=== PATIENT | male | born 1990 | race Caucasian/White ===

== ENCOUNTER 2017-06-16 05:13 | Day surgery (SDC) | payer BC ==
[~2017-06-16] VITALS: Ht 177.8 cm; Wt 76.3 kg
[~2017-06-16 05:13] MED LIST: CRUT1EAC7 MC; CYCL10TA9 PO; NAPR-243 PO; OXYC-197 PO; RANI150T15 PO
[2017-06-16] MEDS ORDERED: NS IV 1000 ML 1,000 ML IV ONE (05:27)
[2017-06-16] MEDS ORDERED: KETOROLAC 30 MG/ML VIAL IVP STA (05:27)
--- NOTE | 2017-06-16 05:27 | ED Abdominal Pain ---
General Stated Complaint: RT SIDE PAIN,DE LA CRUZ Source of Information: Patient Exam Limitations: No Limitations (CHAVEZ RIVERA) History of Present Illness Time Seen By Provider: 05:21 Initial Comments Patient presents to ER with his family by private conveyance with a chief complaint of abdominal pain started abruptly about 7:30 last night. It is accompanied by nausea with no vomiting and a headache. He states that he was doing well and had no sick contacts but started having right-sided abdominal pain up her and lower quadrants. It does not radiate anywhere. He gets a little nauseated when he gets up and moves around but is okay when he lies still. He has no fevers but he's felt chills. No rashes nor diarrhea or constipation. He says he's never had any surgeries on his belly and has had no other medical problems. He takes ranitidine for acid reflux chronically. He chews tobacco but does not smoke and has not drank in over 2-1/2 weeks. He denies any history of illicit drug use or infectious disease such as HIV or hepatitis. (CHAVEZ RIVERA) Allergies and Home Medications Allergies Coded Allergies: No Known Drug Allergies (Unverified , 02/01/13) Home Medications Docusate Sodium 100 Mg Capsule, 100 MG PO BID, #60 Prescribed by: GABRIELA HILL on 06/16/17 0900 Hydrocodone/Acetaminophen 1 Each Tablet, 1 TAB PO Q4H PRN, #30 Ref 0 Prescribed by: GABRIELA HILL on 06/16/17 0900 Ranitidine HCl 150 Mg Tablet, 150 MG PO DAILY, (Reported) Review of Systems Constitutional: see HPI, chills, No diaphoresis, No fever, malaise EENTM: No Eye Pain, No Ear Pain, No Nose Congestion, No Nose Pain Respiratory: Denies Cough, Shortness of Air, Denies Wheezing Cardiovascular: Denies Chest Pain, Denies Edema, Denies Palpitations, Denies Syncope Gastrointestinal: See HPI, Denies Abdomen Distended, Abdominal Pain (right sided), Denies Constipated, Denies Diarrhea, Nausea, Denies Vomiting Genitourinary: Denies Burning, Denies Discharge, Denies Pain Musculoskeletal: No back pain, No joint pain Skin: No pruritus, No rash Psychiatric/Neurological: Headache, Denies Numbness (CHAVEZ RIVERA) Past Jswdzpg-Yarpcl-Jzlysc Hx Patient Social History Alcohol Use: Occasionally Uses (last used 2-1/2 weeks ago) Recreational Drug Use: No Smoking Status: Never a Smoker Type Used: Smokeless Tobacco Recent Foreign Travel: No Contact w/Someone Who Travel: No (CHAVEZ RIVERA) Immunizations Up To Date Tetanus Booster (TDap): Less than 5yrs (CHAVEZ RIVERA) Surgeries HX Surgeries: No (CHAVEZ RIVERA) Respiratory Hx Respiratory Disorders: No (CHAVEZ RIVERA) Cardiovascular Hx Cardiac Disorders: No (HOLOSYSTOLIC MURMER) (CHAVEZ RIVERA) Neurological Hx Neurological Disorders: No (CHAVEZ RIVERA) Reproductive System Hx Reproductive Disorders: No Sexually Transmitted Disease: No HIV/AIDS: No (CHAVEZ RIVERA) Genitourinary Hx Genitourinary Disorders: No (CHAVEZ RIVERA) Gastrointestinal Hx Gastrointestinal Disorders: No Gastrointestinal Disorders: Gastroesophageal Reflux (CHAVEZ RIVERA) Musculoskeletal Hx Musculoskeletal Disorders: No (CHAVEZ RIVERA) Endocrine Hx Endocrine Disorders: No (CHAVEZ RIVERA) HEENT HX ENT Disorders: No (CHAVEZ RIVERA) Cancer Hx Cancer: No (CHAVEZ RIVERA) Psychosocial Hx Psychiatric Problems: No (CHAVEZ RIVERA) Integumentary HX Skin/Integumentary Disorder: No (CHAVEZ RIVERA) Blood Transfusions Hx Blood Disorders: No Adverse Reaction to a Blood Tr: No (CHAVEZ RIVERA) Family Medical History Family Medial History: Hypertension 19 FATHER (CHAVEZ RIVERA) Family Medial History: Hypertension 19 FATHER (SANDRA SHARMA DO) Physical Exam Vital Signs VS - Last 72 Hours, by Label 06/16/17 05:19 Temp 99.4 Pulse 88 Resp 20 B/P (MAP) 127/75 Pulse Ox 96 O2 Delivery Room Air (SANDRA SHARMA DO) Vital Signs Capillary Refill : (CHAVEZ RIVERA) General Appearance: WD/WN, mild distress HEENT: PERRL/EOMI, pharynx normal Respiratory: lungs clear, normal breath sounds Cardiovascular: normal peripheral pulses, regular rate, rhythm, no edema Peripheral Pulses: 3+ Radial Pulses (R), 3+ Radial Pulses (L) Gastrointestinal: normal bowel sounds, no organomegaly, no pulsatile mass, No distended, guarding, tenderness (right upper quadrant and right lower quadrant. He has Kohli's positive sign as well as rebound tenderness in the McBurney's point) Extremities: normal inspection, normal capillary refill Back: normal inspection, no CVA tenderness Neurologic/Psychiatric: alert, normal mood/affect, oriented x 3 Skin: normal color, warm/dry (CHAVEZ RIVERA) Focused Exam Lactic Acid Level Laboratory Tests Test 06/16/17 05:29 Lactic Acid Level 1.20 MMOL/L (0.50-2.00) (SANDRA SHARMA DO) Progress/Results/Core Measures Results/Orders Lab Results Laboratory Tests Test 06/16/17 05:29 06/16/17 05:55 Range/Units White Blood Count 13.5 H 4.3-11.0 10^3/uL Red Blood Count 4.86 4.35-5.85 10^6/uL Hemoglobin 14.2 13.3-17.7 G/DL Hematocrit 41 40-54 % Mean Corpuscular Volume 84 80-99 FL Mean Corpuscular Hemoglobin 29 25-34 PG Mean Corpuscular Hemoglobin Concent 35 32-36 G/DL Red Cell Distribution Width 11.8 10.0-14.5 % Platelet Count 183 130-400 10^3/uL Mean Platelet Volume 9.3 7.4-10.4 FL Neutrophils (%) (Auto) 84 H 42-75 % Lymphocytes (%) (Auto) 7 L 12-44 % Monocytes (%) (Auto) 8 0-12 % Eosinophils (%) (Auto) 1 0-10 % Basophils (%) (Auto) 0 0-10 % Neutrophils # (Auto) 11.4 H 1.8-7.8 X 10^3 Lymphocytes # (Auto) 1.0 1.0-4.0 X 10^3 Monocytes # (Auto) 1.1 H 0.0-1.0 X 10^3 Eosinophils # (Auto) 0.1 0.0-0.3 10^3/uL Basophils # (Auto) 0.0 0.0-0.1 10^3/uL Neutrophils % (Manual) 85 % Lymphocytes % (Manual) 9 % Monocytes % (Manual) 5 % Basophils % (Manual) 1 % Band Neutrophils % Blood Morphology Comment NORMAL Sodium Level 135 135-145 MMOL/L Potassium Level 3.8 3.6-5.0 MMOL/L Chloride Level 105 98-107 MMOL/L Carbon Dioxide Level 19 L 21-32 MMOL/L Anion Gap 11 5-14 MMOL/L Blood Urea Nitrogen 14 7-18 MG/DL Creatinine 1.08 0.60-1.30 MG/DL Estimat Glomerular Filtration Rate > 60 BUN/Creatinine Ratio 13 Glucose Level 116 H 70-105 MG/DL Lactic Acid Level 1.20 0.50-2.00 MMOL/L Calcium Level 9.0 8.5-10.1 MG/DL Magnesium Level 1.9 1.8-2.4 MG/DL Total Bilirubin 0.9 0.1-1.0 MG/DL Aspartate Amino Transf (AST/SGOT) 18 5-34 U/L Alanine Aminotransferase (ALT/SGPT) 20 0-55 U/L Alkaline Phosphatase 67 40-136 U/L Total Protein 6.6 6.4-8.2 GM/DL Albumin 4.0 3.2-4.5 GM/DL Lipase 15 8-78 U/L Urine Color YELLOW Urine Clarity CLEAR Urine pH 7 5-9 Urine Specific [place] 1.010 L 1.016-1.022 Urine Protein NEGATIVE NEGATIVE Urine Glucose (UA) NEGATIVE NEGATIVE Urine Ketones NEGATIVE NEGATIVE Urine Nitrite NEGATIVE NEGATIVE Urine Bilirubin NEGATIVE NEGATIVE Urine Urobilinogen NORMAL NORMAL MG/DL Urine Leukocyte Esterase NEGATIVE NEGATIVE Urine RBC (Auto) NEGATIVE NEGATIVE Urine RBC NONE /HPF Urine WBC NONE /HPF Urine Squamous Epithelial Cells RARE /HPF Urine Crystals NONE /LPF Urine Bacteria NEGATIVE /HPF Urine Casts NONE /LPF Urine Mucus NEGATIVE /LPF Urine Culture Indicated NO (SANDRA SHARMA DO) Medications Given in ED Current Medications Medications Dose Ordered Sig/Tanika Route Start Time Stop Time Status Last Admin Dose Admin Ondansetron HCl 4 mg ONCE ONCE IVP 06/16/17 05:30 06/16/17 05:31 DC 06/16/17 05:34 4 MG Sodium Chloride 1,000 ml @ 0 mls/hr Q0M ONCE IV 06/16/17 05:27 06/16/17 05:31 DC 06/16/17 05:34 999 MLS/HR (BRINA SHARMAA Acosta DO) Vital Signs/I&O Vital Sign - Last 12Hours 7/19/17 05:19 Temp 99.4 Pulse 88 Resp 20 B/P (MAP) 127/75 Pulse Ox 96 O2 Delivery Room Air (RANSANDRA Acosta PENG) Progress Note #1: Time: 05:33 Progress Note Right-sided abdominal pain could be associated with kidney stone versus gallbladder versus appendicitis. It would be prudent to get a CT scan now as well as blood work looking for signs of infection. We'll go ahead and start loading him up with a liter fluids. We'll treat his pain with Toradol since he indicates that the most of his pain and discomfort is from his headache right now and give him some Zofran. Progress Note #2: Time: 06:08 Progress Note Discussed the case with Ran. White count 13.5 and normal lactate pending urines and CT scan shows no evidence of ureter stones or gallbladder inflammation or stones. I don't see the appendix very well. Pending radiology over read. (CHAVEZ RIVERA) Progress Note : Progress Note 0600--ASSUMED CARE FROM DR. RIVERA, CT SCAN RESULTS PENDING PT STATES HIS PAIN AND NAUSEA HAVE EASED AT THIS TIME (SANDRA SHARMA DO) Diagnostic Imaging Diagonstic Imaging: CT Plain Films/CT/US/NM/MRI: abdomen (pelvis without) Comments CT scan shows no evidence of ureter stones or gallbladder inflammation or stones. I don't see the appendix very well. Pending radiology over read. Reviewed: Reviewed Night [facility] Study, Reviewed by Me (CHAVEZ RIVERA) Comments CT ABDOMEN/PELVIS--+ APPENDICITIS WITHOUT PERFORATION, PER [facility] RADIOLOGIST VIA PHONE @ 0620 Reviewed: Reviewed by Me, Discussed w/Radiologist (SANDRA SHARMA DO) Transfer of Care Transfer of Care Time: 06:08 Care transferred to: Ran (CHAVEZ RIVERA) Departure Communication Progress Notes 0623--SPOKE WITH DR. HILL, WILL BE IN TO SEE PT. HE ADVISES TO CONTACT COMPLIANCE COUNSEL, HE WILL BE TAKING DIRECTLY TO SURGERY. 0655--DR. HILL HERE, CARE TURNED OVER TO HIM (SANDRA SHARMA DO) Impression Impression: Primary Impression: Appendicitis Qualified Codes: K35.80 - Unspecified acute appendicitis Disposition: ADMITTED INPATIENT (TO SURGERY) Condition: Improved Decision to Admit Reason: Admit from ER (General) (TO SURGERY) Decision to Admit/Date: Jun 16, 2017 Time/Decision to Admit Time: 06:20 (SANDRA SHARMA DO) Departure-Patient Inst. Referrals: NO,LOCAL PHYSICIAN (PCP/Family) Primary Care Physician Scripts Hydrocodone/Acetaminophen (Hydrocodon -Acetaminophen 5-325) 1 Each Tablet 1 TAB PO Q4H Y, #30 TAB 0 Refills Prov: GABRIELA HILL DO 06/16/17 Docusate Sodium (Colace) 100 Mg Capsule 100 MG PO BID, #60 CAP Prov: GABRIELA HILL DO 06/16/17 CHAVEZ RIVERA Jun 16, 2017 05:27 SANDRA SHARMA DO Jun 16, 2017 06:32
[2017-06-16] MEDS ORDERED: ONDANSETRON 4 MG/2 ML (SDV) Z0FRAN IVP ONE (05:30)
[2017-06-16 05:38] LABS: BASOPHILS % (AUTO) 0 % (0-10); EOSINOPHILS # (AUTO) 0.1 10^3/uL (0.0-0.3); EOSINOPHILS % (AUTO) 1 % (0-10); LYMPHOCYTES % (AUTO) 7 % (12-44); MEAN CORPUSCULAR HEMOGLOBIN 29 PG (25-34); MEAN CORPUSCULAR HGB CONC 35 G/DL (32-36); MEAN CORPUSCULAR VOLUME 84 FL (80-99); MEAN PLATELET VOLUME 9.3 FL (7.4-10.4); MONOCYTES # (AUTO) 1.1 X 10^3 (0.0-1.0); MONOCYTES % (AUTO) 8 % (0-12); NEUTROPHILS # (AUTO) 11.4 X 10^3 (1.8-7.8); NEUTROPHILS % (AUTO) 84 % (42-75); PLATELET COUNT 183 10^3/uL (130-400); RED BLOOD COUNT 4.86 10^6/uL (4.35-5.85); RED CELL DISTRIBUTION WIDTH 11.8 % (10.0-14.5); WHITE BLOOD COUNT 13.5 10^3/uL (4.3-11.0)
[2017-06-16] MEDS ORDERED: Ranitidine (05:53)
[2017-06-16 06:00] LABS: ALANINE AMINOTRANSFERASE 20 U/L (0-55); ANION GAP 11 MMOL/L (5-14); ASPARTATE AMINO TRANSFERASE 18 U/L (5-34); BILIRUBIN,TOTAL 0.9 MG/DL (0.1-1.0); BLOOD UREA NITROGEN 14 MG/DL (7-18); BUN/CREATININE RATIO 13; CARBON DIOXIDE 19 MMOL/L (21-32); CHLORIDE 105 MMOL/L (98-107); CREATININE SERUM 1.08 MG/DL (0.60-1.30); GFR ESTIMATED > 60; GLUCOSE 116 MG/DL (70-105); LIPASE 15 U/L (8-78); MAGNESIUM 1.9 MG/DL (1.8-2.4); POTASSIUM 3.8 MMOL/L (3.6-5.0); SODIUM 135 MMOL/L (135-145); TOTAL PROTEIN 6.6 GM/DL (6.4-8.2)
[2017-06-16 06:03] LABS: BILIRUBIN,URINE NEGATIVE (NEGATIVE); KETONES,URINE NEGATIVE (NEGATIVE); LEUKOCYTE ESTERASE ,URINE NEGATIVE (NEGATIVE); NITRITE,URINE NEGATIVE (NEGATIVE); PH,URINE 7 (5-9); PROTEIN,URINE NEGATIVE (NEGATIVE); UROBILINOGEN,URINE NORMAL (NORMAL)
[2017-06-16 06:05] LABS: BASOPHILS % (MANUAL) 1 %; LYMPHOCYTES % (MANUAL) 9 %; NEUTROPHILS % (MANUAL) 85 %
[2017-06-16 06:17] LABS: SQUAMOUS EPITHELIAL CELL,UR RARE /HPF
[2017-06-16] MEDS ORDERED: DEXAMETHASONE PF 10 MG/ML (DECADRON) VIAL ONE (06:45)
[2017-06-16] MEDS ORDERED: LIDOCAINE 2% 20 ML (XYLOCAINE) VIAL ONE (06:45)
[2017-06-16] MEDS ORDERED: ONDANSETRON 4 MG/2 ML (SDV) Z0FRAN ONE (06:45)
[2017-06-16] MEDS ORDERED: proPOfol 200 MG/20 ML (DIPRIVAN) VIAL IV ONE (06:45)
[2017-06-16] MEDS ORDERED: fentaNYL INJECTION 100 MCG/2 ML AMP ONE ×2 (06:45→08:14)
[2017-06-16] MEDS ORDERED: MIDAZOLAM 2 MG/2 ML (VERSED) VIAL ONE (06:45)
[2017-06-16] MEDS ORDERED: LACTATED RINGERS 1,000 ML IV ONE (06:45)
[2017-06-16] MEDS ORDERED: SEVOFLURANE (ULTANE) 15 ML INHAL SOLN ONE (06:45)
--- NOTE | 2017-06-16 06:54 | Diagnostic Imaging Report ---
PROCEDURE: CT abdomen and pelvis without contrast. TECHNIQUE: Multiple contiguous axial images were obtained through the abdomen and pelvis without the use of intravenous contrast. INDICATION: Pain. I have no priors. FINDINGS: Appendix arises off the posterior medial aspect of the lower cecum and is oriented superolaterally. It is mildly dilated measuring up to 9 mm transverse and there is some mild edema and infiltration of the periappendiceal fat. There is no free air, extraluminal gas or loculated fluid collection. There is no appendicolith. There is no bowel obstruction. The liver, gallbladder, spleen, adrenals and pancreas are unremarkable. The unobstructed kidneys appeared normal. The aorta is nonaneurysmal. This patient has a minute amount of pelvic free fluid. IMPRESSION: Findings most consistent with early changes of acute appendicitis without obstruction, free air or abscess. Minute pelvic free fluid separable from the presumed inflamed appendix. Study otherwise unremarkable. Agree with preliminary. Dictated by: Dictated on workstation # [id number]
[2017-06-16] MEDS ORDERED: LIDOCAINE 1% INJ 20 ML (XYLOCAINE) VIAL ONE (07:02)
[2017-06-16] MEDS ORDERED: BUPIVACAINE 0.5% 30 ML (SENSORCAINE) VIAL ONE (07:02)
[2017-06-16] MEDS ORDERED: ceFAZolin INJECTION 1,000 MG in NS (IVPB) 50 ML IV ONE (07:15)
[2017-06-16] MEDS ORDERED: metroNIDAZOLE 500MG/100ML IVPB IV ONE (07:15)
[2017-06-16] MEDS ORDERED: NS (IVPB) 50 ML ONE (07:17)
[2017-06-16] MEDS ORDERED: ceFAZolin 1,000 MG (ANCEF) VIAL ONE (07:17)
[2017-06-16] MEDS ORDERED: metroNIDAZOLE 500MG/100ML IVPB 100 ML ONE (07:18)
--- NOTE | 2017-06-16 07:19 | History & Physical-Surgical ---
History of Present Illness History of Present Illness Reason for visit/HPI CC abdominal pain. Patient is seen and evaluated in emergency dept. Patient with about 12 hours of abdominal pain. He states initially it began around middle of abdomen and then moved towards right side. Pain worse with movement. No radiation of pain. Pain moderate to severe. Having nausea no emesis. Patient had ct scan demonstrating appendicitis. Denies fever sweats chills shortness of breath or chest pain. Date of Admission Time Seen by Provider: 07:00 I consulted on this patient on 06/16/17 07:13 Attending Physician Gabriela Quiles DO Admitting Physician No,Local Physician Consult Allergies and Home Medications Allergies Coded Allergies: No Known Drug Allergies (Unverified , 02/01/13) Home Medications [Ranitidine] , (Reported) Past Buqxypo-Bjywjh-Mcdtqb Hx Patient Social History Alcohol Use: Occasionally Uses (last used 2-1/2 weeks ago) Recreational Drug Use: No Smoking Status: Never a Smoker Type Used: Smokeless Tobacco Recent Foreign Travel: No Contact w/Someone Who Travel: No Recent Infectious Disease Expo: No Recent Hopitalizations: No Immunizations Up To Date Tetanus Booster (TDap): Less than 5yrs Seasonal Allergies Seasonal Allergies: No Surgeries HX Surgeries: No Respiratory Hx Respiratory Disorders: No Cardiovascular Hx Cardiac Disorders: No (HOLOSYSTOLIC MURMER) Neurological Hx Neurological Disorders: No Reproductive System Hx Reproductive Disorders: No Sexually Transmitted Disease: No HIV/AIDS: No Genitourinary Hx Genitourinary Disorders: No Gastrointestinal Hx Gastrointestinal Disorders: No Gastrointestinal Disorders: Gastroesophageal Reflux Musculoskeletal Hx Musculoskeletal Disorders: No Endocrine Hx Endocrine Disorders: No HEENT HX ENT Disorders: No Cancer Hx Cancer: No Psychosocial Hx Psychiatric Problems: No Integumentary HX Skin/Integumentary Disorder: No Blood Transfusions Hx Blood Disorders: No Adverse Reaction to a Blood Tr: No Family Medical History Significant Family History: No Pertinent Family Hx Family Medial History: Hypertension 19 FATHER Constitutional: no symptoms reported EENTM: no symptoms reported Respiratory: no symptoms reported Cardiovascular: no symptoms reported Gastrointestinal: see HPI Genitourinary: no symptoms reported Musculoskeletal: no symptoms reported Skin: no symptoms reported Psychiatric/Neurological: No Symptoms Reported Physical Exam Vital Signs Vital Sign - Last 12Hours 06/16/17 05:19 Temp 99.4 Pulse 88 Resp 20 B/P (MAP) 127/75 Pulse Ox 96 O2 Delivery Room Air Capillary Refill : Less Than 3 Seconds General Appearance: No Apparent Distress (laying in bed slightly curled up in ball) HEENT: PERRL/EOMI Neck: Supple Respiratory: No Accessory Muscle Use, No Respiratory Distress Cardiovascular: Regular Rate, Rhythm Gastrointestinal: Tenderness (right lower quadrant) Rectal: Deferred Back: Normal Inspection Extremity: Non Tender Neurologic/Psychiatric: Alert, Oriented x3, No Motor/Sensory Deficits Skin: Warm/Dry Data Review Labs Laboratory Tests 06/16/17 05:29: White Blood Count 13.5H, Red Blood Count 4.86, Hemoglobin 14.2, Hematocrit 41, Mean Corpuscular Volume 84, Mean Corpuscular Hemoglobin 29, Mean Corpuscular Hemoglobin Concent 35, Red Cell Distribution Width 11.8, Platelet Count 183, Mean Platelet Volume 9.3, Neutrophils (%) (Auto) 84H, Lymphocytes (%) (Auto) 7L , Monocytes (%) (Auto) 8, Eosinophils (%) (Auto) 1, Basophils (%) (Auto) 0, Neutrophils # (Auto) 11.4H, Lymphocytes # (Auto) 1.0, Monocytes # (Auto) 1.1H, Eosinophils # (Auto) 0.1, Basophils # (Auto) 0.0, Neutrophils % (Manual) 85, Lymphocytes % (Manual) 9, Monocytes % (Manual) 5, Basophils % (Manual) 1, Band Neutrophils , Blood Morphology Comment NORMAL, Sodium Level 135, Potassium Level 3.8, Chloride Level 105, Carbon Dioxide Level 19L, Anion Gap 11, Blood Urea Nitrogen 14, Creatinine 1.08, Estimat Glomerular Filtration Rate > 60, BUN/ Creatinine Ratio 13, Glucose Level 116H, Lactic Acid Level 1.20, Calcium Level 9.0, Magnesium Level 1.9, Total Bilirubin 0.9, Aspartate Amino Transf (AST/SGOT ) 18, Alanine Aminotransferase (ALT/SGPT) 20, Alkaline Phosphatase 67, Total Protein 6.6, Albumin 4.0, Lipase 15 06/16/17 05:55: Urine Color YELLOW, Urine Clarity CLEAR, Urine pH 7, Urine Specific [place] 1.010L, Urine Protein NEGATIVE, Urine Glucose (UA) NEGATIVE, Urine Ketones NEGATIVE, Urine Nitrite NEGATIVE, Urine Bilirubin NEGATIVE, Urine Urobilinogen NORMAL, Urine Leukocyte Esterase NEGATIVE, Urine RBC (Auto) NEGATIVE, Urine RBC NONE, Urine WBC NONE, Urine Squamous Epithelial Cells RARE, Urine Crystals NONE , Urine Bacteria NEGATIVE, Urine Casts NONE, Urine Mucus NEGATIVE, Urine Culture Indicated NO Assessment/Plan Assessment/Plan Assessment/Plan patient with right lower quadrant abdominal pain. exam and ct consistent with appendicitis risks and benefits of laparoscopic appendectomy all other indicated procedures explained and he and family understand patient to or venecia davis preop scd's consent obtained iv fluids npo GABRIELA QUILES DO Jun 16, 2017 07:19
[2017-06-16] MEDS: LACTATED RINGERS 1,000 ML IV SCH ×2 (07:35→08:51)
[2017-06-16] MEDS ORDERED: MEPERIDINE (DEMEROL) INJ 50 MG/ML ONE (08:58)
[2017-06-16] MEDS ORDERED: NS IV 1000 ML 1,000 ML IV SCH (08:58)
--- NOTE | 2017-06-16 08:58 | Progress Note-Post Operative ---
Post-Operative Progess Note Surgeon (s)/Community Support Worker (s) Surgeon GABRIELA HILL DO Community Support Worker: na Pre-Operative Diagnosis appendicitis Post-Operative Diagnosis same Procedure & Operative Findings Date of Procedure 06/16/17 Procedure Performed/Findings lap appendectomy Anesthesia Type gen Estimated Blood Loss Estimated blood loss (mL): min Specimens/Packing Specimens Removed appendix GABRIELA HILL DO Jun 16, 2017 8:58 am
[2017-06-16] MEDS ORDERED: HYDR-3812 PO (09:00)
[2017-06-16] MEDS ORDERED: morphine INJ 10 MG/ML 1ML (SYR OR VIAL) IV PRN (09:00)
[2017-06-16] MEDS ORDERED: DOCU-143 PO (09:00)
[2017-06-16] MEDS ORDERED: HYDROcodone/APAP 5 MG/325 MG (LORTAB) TAB PO PRN (09:00)
--- NOTE | 2017-06-16 09:02 | Discharge Inst-Simple/Standard ---
Discharge Inst-Standard Discharge Medications New, Converted or Re-Newed RX: RX on Chart Patient Instructions/Follow Up Plan of Care/Instructions/FU: 2 weeks Kb Activity as Tolerated: Yes Discharge Diet: Liquid Diet (then slowly advance diet) Other Inst to Patient Follow up Appt: Make appointment for 2 week. Instructions: No lifting greater than 10 pounds. No strenuous activity. May shower in 24 hours, no tub bath or soaking. Use incentive spirometer at home as directed. No Smoking Skin/Wound Care: You have special glue over incisions it will fall off on its own. Symptoms to Report: Appetite Changes, Extremity Discoloration, Numbness/Tingling, Swelling Increased , Bleeding Excessive, Eyesight Changes, Pain Increased, Urine Color Change, Constipation(Persistent), Fever over 101 degree F, Pain/Pressure in chest, Urinating Difficulty, Cough Up/Vomit Blood, Heart Beat Irreg/Pounding, Pain/ Pressure in jaw, Vaginal Bleeding Increase, Cramps in feet or legs, Lightheadedness, Pain/Pressure in shoulder, Diarrhea(Persistent), Memory Changes Suddenly, Questions/Concerns, Weight gain consecutive days, Dizziness/ Fainting, Nausea/Vomiting, Shortness of Breath, Weight gain over 2 pounds If questions or concerns contact your physician Or seek help at emergency department. GABRIELA HILL DO Jun 16, 2017 9:02 am
[2017-06-16] MEDS ORDERED: ONDANSETRON 4 MG/2 ML (SDV) Z0FRAN IVP PRN (09:15)
[2017-06-16] MEDS ORDERED: MEPERIDINE (DEMEROL) INJ 50 MG/ML IVP PRN (09:15)
[2017-06-16] MEDS ORDERED: fentaNYL INJECTION 100 MCG/2 ML AMP IVP PRN (09:15)
[2017-06-16] MEDS ORDERED: morphine INJ 10 MG/ML 1ML (SYR OR VIAL) IVP PRN (09:15)
[2017-06-16 10:30] VITALS: BP 120/69
[2017-06-16 12:00] VITALS: BP 99/62
[2017-06-16] MEDS ORDERED: RANI150T11 PO (12:59)
[2017-06-16] MEDS ORDERED: FAMOTIDINE 20 MG (PEPCID) TABLET PO NR (13:15)
[2017-06-16] MEDS ORDERED: ceFAZolin INJECTION 1,000 MG in NS (IVPB) 50 ML IV SCH (14:00)
[2017-06-16] MEDS ORDERED: metroNIDAZOLE 500MG/100ML IVPB IV SCH (14:00)
[2017-06-16 16:29] VITALS: BP 99/62
--- NOTE | 2017-06-17 11:36 | OPERATIVE REPORT ---
PROCEDURE PHYSICIAN: GABRIELA QUILES DATE OF PROCEDURE: 06/16/2017 PREOPERATIVE DIAGNOSIS: Appendicitis. POSTOPERATIVE DIAGNOSIS: Appendicitis. PROCEDURE: Laparoscopic appendectomy. SURGEON: Dr. Quiles. ANESTHESIA: General. ESTIMATED BLOOD LOSS: Minimal. COMPLICATIONS: None. INDICATIONS: The patient is a 27-year-old male who presented to the emergency department with abdominal pain. His exam and work-up was consistent with appendicitis. He understands the risks and benefits of the procedure and wished to proceed with procedure. Consent was signed on the chart. PROCEDURE: The patient was taken to the operating suite. He was prepped and draped in sterile fashion. A surgical pause was performed. A 5 mm incision was made at the umbilicus. Daniel was used to dissect down the fascia, grasped it and elevated. Veress needle was inserted into the abdomen and pneumoperitoneum was achieved. Under direct visualization of the laparoscope, 5 mm trocar was then placed. Under direct visualization of the laparoscope, a 5 mm trocar was placed in the suprapubic region and a 12 mm trocar was placed in left lower quadrant. The appendix was identified and elevated. The tip of the appendix was dilated and had inflammatory changes around the appendix. A window was created at the base of the appendix using a [place] and Endo TERE 2.5 stapler was then fired across the base of the appendix. An Endo TERE reloads of 2.0 were then fired across the mesoappendix until completely removed. The appendix was then placed in an Endobag and removed through the 12 mm trocar site. Copious amounts of irrigation were used to irrigate the abdomen. Hemostasis was achieved. The 12 mm fascial defect was then closed using 0 Vicryl with Endo Close. The abdomen was then desufflated. The trocars were removed. The skin was then closed using 4-0 Vicryl in a subcuticular fashion. The skin was then washed and dried and Dermabond was placed over the incisions. The patient tolerated the procedure well without any complications and was taken to recovery room in stable condition. Job ID: [id number] Dictated Date: 06/17/2017 09:45:39 Rubber Tubing Splicer Date: 06/17/2017 11:31:00 / denise
--- OUTSIDE RECORDS SUMMARY | 2017-06-23 21:29 | XMS REPORT | Continuity of Care Document ---
Author Author [facility] Organization [facility] Address Unknown Phone Unavailable Allergies Active Description Code Type Severity Reaction Onset Reported/Identified Relationship to Patient Clinical Status Yes No Known Drug Allergies [id number] Drug Allergy Unknown N/ A 02/01/2013 Medications Problems Date Dx Coded Attending Type Code Diagnosis Diagnosed By 02/01/2013 Ot 724.2 10/08/[address] [facility], [facility] CCDS Ot K21.9 GASTRO-ESOPHAGEAL REFLUX DISEASE WITHOUT 10/08/2015 ARLENE JACOBO [facility] CCD[facility] Ot R07.89 OTHER CHEST PAIN 10/08/[address] [facility], [facility] CCDS Ot Z72.0 TOBACCO USE 10/08/[address] [facility], [facility] CCD[facility] Ot Z82.49 FAMILY HX OF ISCHEM HEART DIS AND OTH DI 03/22/2016 FRANCISCO CLARKE MD Ot S82.851A DISPLACED TRIMALLEOLAR FRACTURE OF RIGHT 03/22/2016 FRANCISCO CLARKE MD Ot S93.491A SPRAIN OF OTHER LIGAMENT OF RIGHT ANKLE, 03/22/2016 FRANCISCO CLARKE MD Ot X39.8XXA OTHER EXPOSURE TO [employer], INIT 03/22/2016 FRANCISCO CLARKE MD Ot Y92.[address] [facility] [address] IN [facility] ( PRIVATE 03/22/2016 FRANCISCO CLARKE MD Ot Y93.44 ACTIVITY, TRAMPOLINING 03/22/2016 FRANCISCO CLARKE MD Ot Y99.8 OTHER EXTERNAL CAUSE STATUS 04/02/2016 FRANCISCO CLARKE MD Ot S82.851A DISPLACED TRIMALLEOLAR FRACTURE OF RIGHT 04/02/2016 FRANCISCO CLARKE MD Ot S93.491A SPRAIN OF OTHER LIGAMENT OF RIGHT ANKLE, 04/02/2016 FRANCISCO CLARKE MD Ot X39.8XXA OTHER EXPOSURE TO [employer], INIT 04/02/2016 ZAFUTA MD, FRANCISCO P Ot Y92.[address] IN [facility] ( PRIVATE 04/02/2016 VINCE JACOBO, FRANCISCO P Ot Y93.44 ACTIVITY, TRAMPOLINING 04/02/2016 VINCE JACOBO, FRANCISCO P Ot Y99.8 OTHER EXTERNAL CAUSE STATUS 04/04/2016 FRANCISCO CLARKE MD P Ot S82.851A DISPLACED TRIMALLEOLAR FRACTURE OF RIGHT 04/04/2016 VINCE JACOBO, FRANCISCO P Ot S93.491A SPRAIN OF OTHER LIGAMENT OF RIGHT ANKLE, 04/04/2016 VINCE JACOBO, FRANCISCO P Ot X39.8XXA OTHER EXPOSURE TO [employer], INIT 04/04/2016 FRANCISCO CLARKE MD P Ot Y92.[address] IN [facility] ( PRIVATE 04/04/2016 VINCE JACOBO, FRANCISCO P Ot Y93.44 ACTIVITY, TRAMPOLINING 04/04/2016 VINCE JACOBO, FRANCISCO P Ot Y99.8 OTHER EXTERNAL CAUSE STATUS 04/24/2016 VINCE JACOBO FRANCISCO P Ot S82.851A DISPLACED TRIMALLEOLAR FRACTURE OF RIGHT 04/24/2016 VINCE JACOBO, FRANCISCO P Ot S93.491A SPRAIN OF OTHER LIGAMENT OF RIGHT ANKLE, 04/24/2016 FRANCISCO CLARKE MD P Ot X39.8XXA OTHER EXPOSURE TO [employer], INIT 04/24/2016 VINCE JACOBO FRANCISCO P Ot Y92.[address] IN [facility] ( PRIVATE 04/24/2016 VINCE JACOBO FRANCISCO P Ot Y93.44 ACTIVITY, TRAMPOLINING 04/24/2016 VINCE JACOBO, FRANCISCO P Ot Y99.8 OTHER EXTERNAL CAUSE STATUS 06/16/2017 GABRIELA HILL DO Ot K21.9 GASTRO-ESOPHAGEAL REFLUX DISEASE WITHOUT 06/16/2017 HILL DOGABRIELA D Ot K35.80 UNSPECIFIED ACUTE APPENDICITIS 06/19/2017 HILLGABRIELA ENGLAND DO Ot K21.9 GASTRO-ESOPHAGEAL REFLUX DISEASE WITHOUT 06/19/2017 HILL GABRIELA PENG Ot K35.80 UNSPECIFIED ACUTE APPENDICITIS 06/22/2017 HILLGABRIELA ENGLAND DO Ot K21.9 GASTRO-ESOPHAGEAL REFLUX DISEASE WITHOUT 06/22/2017 HILLGABRIELA ENGLAND DO Ot K35.80 UNSPECIFIED ACUTE APPENDICITIS 06/23/2017 GABRIELA HILL DO Ot K21.9 GASTRO-ESOPHAGEAL REFLUX DISEASE WITHOUT 06/23/2017 GABRIELA HILL DO Ot K35.80 UNSPECIFIED ACUTE APPENDICITIS Procedures Results Test Result Range Complete blood count (CBC) with automated white blood cell (WBC) differential - 06/16/17 05:29 Blood leukocytes automated count (number/volume) 13.5 10*3/ uL 4.3-11.0 Blood erythrocytes automated count (number/volume) 4.86 10*6 /uL 4.35-5.85 Venous blood hemoglobin measurement (mass/volume) 14.2 g/dL 13.3-17.7 Blood hematocrit (volume fraction) 41 % 40-54 Automated erythrocyte mean corpuscular volume 84 [foz_us] 80-99 Automated erythrocyte mean corpuscular hemoglobin (mass per erythrocyte) 29 pg 25-34 Automated erythrocyte mean corpuscular hemoglobin concentration measurement ( mass/volume) 35 g/dL 32-36 Automated erythrocyte distribution width ratio 11.8 % 10.0-14.5 Automated blood platelet count (count/volume) 183 10*3/uL 130-400 Automated blood platelet mean volume measurement 9.3 [foz_us ] 7.4-10.4 Automated blood neutrophils/100 leukocytes 84 % 42-75 Automated blood lymphocytes/100 leukocytes 7 % 12-44 Blood monocytes/100 leukocytes 8 % 0-12 Automated blood eosinophils/100 leukocytes 1 % 0-10 Automated blood basophils/100 leukocytes 0 % 0-10 Blood neutrophils automated count (number/volume) 11.4 10*3 1.8-7.8 Blood lymphocytes automated count (number/volume) 1.0 10*3 1.0-4.0 Blood monocytes automated count (number/volume) 1.1 10*3 0.0-1.0 Automated eosinophil count 0.1 10*3/uL 0.0-0.3 Automated blood basophil count (count/volume) 0.0 10*3/uL 0.0-0.1 Blood lactic acid measurement (moles/volume) - 06/16/17 05:29 Blood lactic acid measurement (moles/volume) 1.20 mmol/L 0.50-2.00 Comprehensive metabolic panel - 06/16/17 05:29 Serum or plasma sodium measurement (moles/volume) 135 mmol/ L 135-145 Serum or plasma potassium measurement (moles/volume) 3.8 mmol/L 3.6-5.0 Serum or plasma chloride measurement (moles/volume) 105 mmol /L 98-107 Carbon dioxide 19 mmol/L 21-32 Serum or plasma anion gap determination (moles/volume) 11 mmol/L 5-14 Serum or plasma urea nitrogen measurement (mass/volume) 14 mg/dL 7-18 Serum or plasma creatinine measurement (mass/volume) 1.08 mg /dL 0.60-1.30 Serum or plasma urea nitrogen/creatinine mass ratio 13 NRG Serum or plasma creatinine measurement with calculation of estimated glomerular filtration rate > NRG Serum or plasma glucose measurement (mass/volume) 116 mg/dL 70-105 Serum or plasma calcium measurement (mass/volume) 9.0 mg/dL 8.5-10.1 Serum or plasma total bilirubin measurement (mass/volume) 0.9 mg/dL 0.1-1.0 Serum or plasma alkaline phosphatase measurement (enzymatic activity/volume) 67 U/L 40-136 Serum or plasma aspartate aminotransferase measurement (enzymatic activity/ volume) 18 U/L 5-34 Serum or plasma alanine aminotransferase measurement (enzymatic activity/volume ) 20 U/L 0-55 Serum or plasma protein measurement (mass/volume) 6.6 g/dL 6.4-8.2 Serum or plasma albumin measurement (mass/volume) 4.0 g/dL 3.2-4.5 Magnesium - 06/16/17 05:29 Magnesium 1.9 mg/dL 1.8-2.4 Lipase - 06/16/17 05:29 Lipase 15 U/L 8-78 Blood manual differential performed detection - 06/16/17 05:29 Blood monocytes/100 leukocytes 5 % [facility] Manual blood segmented neutrophils/100 leukocytes 85 % NR Manual blood lymphocytes/100 leukocytes 9 % NR Manual blood basophils/100 leukocytes 1 % [facility] Blood erythrocyte morphology finding identification NORMAL NR Complete urinalysis with reflex to culture - 06/16/17 05:55 Urine color determination YELLOW NRG Urine clarity determination CLEAR NRG Urine pH measurement by test strip 7 5- 9 Specific gravity of urine by test strip 1.010 1.016-1.022 Urine protein assay by test strip, semi-quantitative NEGATIVE NEGATIVE Urine glucose detection by automated test strip NEGATIVE NEGATIVE Erythrocytes detection in urine sediment by light microscopy NEGATIVE NEGATIVE Urine ketones detection by automated test strip NEGATIVE NEGATIVE Urine nitrite detection by test strip NEGATIVE NEGATIVE Urine total bilirubin detection by test strip NEGATIVE NEGATIVE Urine urobilinogen measurement by automated test strip (mass/volume) NORMAL NORMAL Urine leukocyte esterase detection by dipstick NEGATIVE NEGATIVE Automated urine sediment erythrocyte count by microscopy (number/high power field) NONE NRG Automated urine sediment leukocyte count by microscopy (number/high power field ) NONE NRG Bacteria detection in urine sediment by light microscopy NEGATIVE NRG Squamous epithelial cells detection in urine sediment by light microscopy RARE NRG Crystals detection in urine sediment by light microscopy NONE NRG Casts detection in urine sediment by light microscopy NONE NRG Mucus detection in urine sediment by light microscopy NEGATIVE NRG Complete urinalysis with reflex to culture NO NRG Encounters ACCT No. Visit Date/Time Discharge Status Pt. Type Provider Facility Loc./Unit Complaint [id number] 06/16/2017 06:36:00 2016 16:37:00 DIS Outpatient GABRIELA HILL DO [facility] APPENDICITIS [id number] 03/21/2016 23:57:00 2015 14:03:00 DIS Outpatient VINCE JACOBO, FRANCISCO Chan [facility] TRIMALLEOLAR FRACTURE R ANKLE [id number] 10/07/2015 19:36:00 2014 17:20:00 DIS Inpatient ARLENE JACOBO FACC, LEYDI GAMEZ CCDS [facility] CSD CHEST PAIN HOLOSYSTOLIC MURMUR [id number] 02/01/2013 21:07:00 Document Registration
--- OUTSIDE RECORDS SUMMARY | 2017-06-23 21:32 | XMS REPORT | Continuity of Care Document ---
Author Author [facility] Organization [facility] Address Unknown Phone Unavailable Allergies Active Description Code Type Severity Reaction Onset Reported/Identified Relationship to Patient Clinical Status Yes No Known Drug Allergies [id number] Drug Allergy Unknown N/ A 02/01/2013 Medications Problems Date Dx Coded Attending Type Code Diagnosis Diagnosed By 02/01/2013 Ot 724.2 10/08/2015 ARLENE JACOBO [facility], [facility] CCDS Ot K21.9 GASTRO-ESOPHAGEAL REFLUX DISEASE WITHOUT 10/08/2015 ARLENE JACOBO FAC, [facility] CCDS Ot R07.89 OTHER CHEST PAIN 10/08/2015 ARLENE JACOBO [facility] CCDS Ot Z72.0 TOBACCO USE 10/08/2015 ARLENE JACOBO [facility], [facility] CCDS Ot Z82.49 FAMILY HX OF ISCHEM HEART DIS AND OTH DI 03/22/2016 FRANCISCO CLARKE MD Ot S82.851A DISPLACED TRIMALLEOLAR FRACTURE OF RIGHT 03/22/2016 FRANCISCO CLARKE MD Ot S93.491A SPRAIN OF OTHER LIGAMENT OF RIGHT ANKLE, 03/22/2016 FRANCISCO CLARKE MD Ot X39.8XXA OTHER EXPOSURE TO [employer], INIT 03/22/2016 FRANCISCO CLARKE MD Ot Y92.[address] [facility] [address] IN [facility] NON[facility] ( PRIVATE 03/22/2016 FRANCISCO CLARKE MD Ot Y93.44 ACTIVITY, TRAMPOLINING 03/22/2016 FRANCISCO LCARKE MD Ot Y99.8 OTHER EXTERNAL CAUSE STATUS 04/02/2016 FRANCISCO CLARKE MD Ot S82.851A DISPLACED TRIMALLEOLAR FRACTURE OF RIGHT 04/02/2016 FRANCISCO CLARKE MD Ot S93.491A SPRAIN OF OTHER LIGAMENT OF RIGHT ANKLE, 04/02/2016 FRANCISCO CLARKE MD Ot X39.8XXA OTHER EXPOSURE TO [employer], INIT 04/02/2016 ZAFUTA MD, FRANCISCO P Ot Y92.[address] IN [facility] NON[facility] ( PRIVATE 04/02/2016 VINCE JACOBO, [...] MD P Ot Y92.[address] IN [facility] NON[facility] ( PRIVATE 04/04/2016 VINCE JACOBO, [...] FRANCISCO P Ot Y92.[address] IN [facility] ( PRIVATE 04/24/2016 VINCE JACOBO [...] 05:29 Blood monocytes/100 leukocytes 5 % [facility] Manual blood segmented neutrophils/100 leukocytes 85 % NR Manual blood lymphocytes/100 leukocytes 9 % NR Manual blood basophils/100 leukocytes 1 % [facility] Blood erythrocyte morphology finding identification NORMAL NR [...] Status Pt. Type Provider Facility Loc./Unit Complaint [id number] 06/16/2017 06:36:00 2016 16:37:00 DIS Outpatient GABRIELA HILL DO [facility] APPENDICITIS [id number] 03/21/2016 23:57:00 2015 14:03:00 DIS Outpatient VINCE JACOBO, FRANCISCO Chan [facility] TRIMALLEOLAR FRACTURE R ANKLE [id number] 10/07/2015 19:36:00 2014 17:20:00 DIS Inpatient ARLENE JACOBO FACC, LEYDI GAMEZ CCDS [facility] CSD CHEST PAIN HOLOSYSTOLIC MURMUR [id number] 02/01/2013 21:07:00 Document Registration
== END 2017-06-16 16:37 | disposition home or self-care (01) ==
LOC: EDUNIT# 05:13 → ER 05:16 → SDC 06:36 → 4TH 10:00 → SDC 16:37
PROVIDERS: ATTEND Surgery
DX: K35.80 Unspecified acute appendicitis (principal); K21.9 Gastro-esophageal reflux disease without esophagitis
CPT/HCPCS: 36415; 74176; 80053; 81000; 83605; 83690; 83735; 85007; 85025; 85027; 88304; 94664; 96361; 96374; 96375

== ENCOUNTER → 2018-09-09 | Outpatient (CLI) | payer BC ==
[~2018-09-09] VITALS: Ht 177.8 cm; Wt 77.3 kg
[~2018-09-09] MED LIST changes: +ACHD5005 PO; +DOCU-143 PO; +GADOBUTROL 7.5 MMOL/7.5 ML (GADAVIST) VIAL IV ONE; +IOHEXOL 240 MGI/ML 20 ML (OMNIPAQUE) VIAL IV ONE; +LIDOCAINE 1% INJ 20 ML 20 ML VIAL INJ ONE; -OXYC-197 PO; +OXYC1TAB87 PO; +RANI150T11 PO; -RANI150T15 PO; +RANI150T46 PO; +Ranitidine
--- NOTE | 2018-09-09 10:20 | Diagnostic Imaging Report ---
Right shoulder injection for MRI. Indication: Shoulder pain. Following the preparation of skin and administration of local anesthesia, a 22-gauge and was advanced into the right glenohumeral joint using fluoroscopic guidance. Subsequent a 12 cc mixture of cervical artery, Omnipaque 240 and Gadavist was infused. The patient tolerated the procedure well and was sent to the MR suite in good condition. 30.8 seconds of fluoroscopy time was utilized. Impression: There has been a successful injection of the glenohumeral joint on the right. MRI is pending for further evaluation. Dictated by: Dictated on workstation # [id number]
--- NOTE | 2018-09-09 12:02 | Diagnostic Imaging Report ---
MRI of the right upper extremity with contrast. INDICATION: Shoulder pain. Multiplanar images utilizing both T1 and T2-weighted sequences were obtained. The study was performed following administration of intra-articular contrast. There are no prior exams available for comparison. FINDINGS: There is a small collection of contrast in the inferior labrum in the 5-7 o'clock position. This does suggest a small labral tear. The labrum is otherwise intact. The rotator cuff appears to be intact although there is a small amount of fluid in the subdeltoid bursa. This does suggest that there is an element of mild tendinitis present. There is hypertrophy of the acromioclavicular joint and this does result in narrowing of the outlet for the supraspinatus muscle. The biceps tendon and the subscapularis tendon are intact. There is no abnormal signal arising from the osseous structures to suggest bone edema or a fracture. IMPRESSION: 1. There is a small tear of the inferior labrum. The labrum is otherwise intact. 2. There is no sign of a tear of the rotator cuff and the supraspinatus muscle is not retracted or bunched. However, there is a trace amount of fluid in the subdeltoid bursa indicating that there is an element of mild tendinitis present. 3. There is hypertrophy of the acromioclavicular joint and this does result in narrowing of the outlet for the supraspinatus muscle. 4. There is no acute bony abnormality noted. Dictated by: Dictated on workstation # [id number]
== END ==
LOC: RAD 08:52
PROVIDERS: ATTEND Nurse Practitioner
DX: S43.431A Superior glenoid labrum lesion of right shoulder, initial encounter (principal); M62.511 Muscle wasting and atrophy, not elsewhere classified, right shoulder
CPT/HCPCS: 23350; 73040; 73222

== ENCOUNTER → 2020-01-26 | Outpatient (CLI) | payer BC ==
[~2020-01-26] MED LIST changes: +CATHETER FLUSH 10 ML SYR IV PRN; -GADOBUTROL 7.5 MMOL/7.5 ML (GADAVIST) VIAL IV ONE; -IOHEXOL 240 MGI/ML 20 ML (OMNIPAQUE) VIAL IV ONE; -LIDOCAINE 1% INJ 20 ML 20 ML VIAL INJ ONE; +RANI-613 PO; -RANI150T46 PO
--- NOTE | 2020-01-26 11:52 | Diagnostic Imaging Report ---
INDICATION: Right side abdominal pain. TECHNIQUE: Patient was administered 5.4 mCi technetium 99m Choletec intravenously and imaging over the abdomen was performed. At 60 minutes, patient ingested one can of Ensure and gallbladder ejection fraction was calculated. FINDINGS: There is homogeneous uptake of activity by the liver with prompt excretion of activity into the common duct and gallbladder. Normal passage of activity into the small bowel is seen. Gallbladder ejection fraction is normal at 56%. IMPRESSION: Normal HIDA scan and gallbladder ejection fraction. Dictated by: Dictated on workstation # [id number]
== END ==
LOC: CARD 09:17
PROVIDERS: ATTEND Nurse Practitioner Family
DX: R10.31 Right lower quadrant pain (principal); R10.83 Colic
CPT/HCPCS: 78227